=== PATIENT | female | born 1950 | race Caucasian/White ===

== ENCOUNTER 2025-03-22 13:56 | Inpatient (IN) | payer OTHER ==
[~2025-03-22] VITALS: Ht 167.6 cm; Wt 72.6 kg
[2025-03-22] VITALS (12 sets, daily range): BP systolic 73–133; BP diastolic 46–113; PULSE 110–123; RESP 11–23; TEMP 35.584–35.6; O2SAT 92–99
[2025-03-22] MEDS ORDERED: ACYCLOVIR INJ 500 MG in DEXT 5% WATER 100 ML IV ONE (14:30)
[2025-03-22] MEDS: SODIUM CHLORIDE 0.9% (SEPSIS BOLUS) IV ONE (14:39)
[2025-03-22] MEDS: MORPHINE SULFATE 4 MG/ML INJ (FOR IV/IM USE) IV ONE (15:00)
[2025-03-22] MEDS: PIPERACILLIN/TAZO 3.375G/50ML 50 ML IV ONE (15:03)
[2025-03-22] MEDS: ONDANSETRON HCL 4MG/2ML INJ IV ONE (15:06)
[2025-03-22 15:09] LABS: BASOPHILS % 0.0 % (0.0-2.0); EOSINOPHILS % 0.1 % (0.0-5.0); HEMATOCRIT. 23.6 % (36.0-48.0); HEMOGLOBIN. 7.3 g/dL (12.0-16.0); LYMPHOCYTES % 14.7 % (20.0-50.0); MEAN PLATELET VOLUME 6.5 fl (7.4-10.4); MONOCYTES % 12.5 % (2.0-8.0); NEUTROPHILS % 72.7 % (40.0-76.0); PLATELET 185 x1000/uL (130-400); RED BLOOD CELL COUNT 2.85 mill/uL (4.2-5.4); RED CELL DISTRIBUTION WIDTH 16.3 % (11.6-14.6)
[2025-03-22 15:20] LABS: CREATININE 1.3 mg/dL (0.6-1.0)
[2025-03-22 15:21] LABS: UREA NITROGEN BLOOD 64 mg/dL (9-23)
[2025-03-22 15:22] LABS: ASPARTATE AMINOTRANSFERASE 16 IU/L (<34); TROPONIN I HIGH SENSITIVITY 11 ng/L (3.0-34)
[2025-03-22 15:23] LABS: BILIRUBIN DIRECT 0.1 mg/dL (<=3.0); BILIRUBIN TOTAL 0.3 mg/dL (0.1-1.0); PROTEIN TOTAL 5.0 g/dL (6.0-8.3)
[2025-03-22 15:34] LABS: INR 1.1
[2025-03-22] MEDS: ACYCLOVIR INJ 600 MG in DEXT 5% WATER 100 ML IV SCH (16:13)
[2025-03-22] MEDS: NOREPINEPHRINE 8MG/250ML PMX 250 ML IV ONE (16:26)
[2025-03-22 16:43] LABS: CLARITY URINE TURBID (CLEAR); COLOR URINE YELLOW (YELLOW); GLUCOSE URINE NEGATIVE (NEGATIVE); KETONES URINE NEGATIVE (NEGATIVE); LEUKOCYTE ESTERASE URINE 3+ (NEGATIVE); NITRITE URINE NEGATIVE (NEGATIVE); OCCULT BLOOD URINE 3+ (NEGATIVE); PH URINE 5.0 (4.5-8.0); PROTEIN URINE 1+ (NEGATIVE); SPECIFIC GRAVITY URINE 1.014 (1.005-1.030); UROBILINOGEN URINE 0.2 E.U./dL (0.2-1.0)
[2025-03-22] MEDS: SODIUM BICARBONATE 8.4% 50MEQ/50ML SYR IV ONE (17:11)
[2025-03-22 17:29] LABS: BACTERIA URINE 3+; RBC URINE TNTC /hpf (0-2); SQUAMOUS EPITHELIAL CELL URINE 1+ /lpf (RARE/1+); WBC URINE TNTC /hpf (0-2)
[2025-03-22] MEDS: VANCOMYCIN 1G PREMIX 200 ML IV STA (18:08)
[2025-03-22] MEDS: DIATR MEGLU/DIATRIZOATE SOLN 30ML NG ONE (19:51)
[2025-03-22] MEDS ORDERED: ONDANSETRON HCL 4MG/2ML INJ IV PRN (20:45)
[2025-03-22] MEDS ORDERED: CLONIDINE 0.1MG TABLET PO PRN (20:45)
[2025-03-22] MEDS ORDERED: MAGNESIUM/ALUMINUM HYDROXIDE/SIMETHICONE 30ML UDC PO PRN (20:45)
[2025-03-22] MEDS ORDERED: IPRATROPIUM/ALBUTEROL 0.5-3(2.5)MG/3ML NEB HHN PRN (20:45)
[2025-03-22] MEDS ORDERED: DEXTROSE 50% WATER 50ML SYRINGE IV PRN (20:45)
[2025-03-22] MEDS ORDERED: DOCUSATE SODIUM 100MG CAPSULE PO PRN (20:45)
[2025-03-22] MEDS ORDERED: GUAIFENESIN 200MG/10ML SUGAR FREE UDC PO PRN (20:45)
[2025-03-22] MEDS: SODIUM ZIRCONIUM CYCLOSILICATE 10GM/PACKET PO NR (22:00)
[2025-03-22] MEDS ORDERED: VASOPRESSIN 20 UNIT in SODIUM CHLORIDE 0.9% 99 ML IV PRN (22:00)
[2025-03-22] MEDS: SODIUM CHLORIDE 0.9% 1,000 ML IV SCH (22:24)
[2025-03-22] MEDS: PANTOPRAZOLE SODIUM 40 MG/VIAL IV SCH (22:24)
[2025-03-22] MEDS: PIPERACILLIN/TAZO 3.375G/50ML 50 ML IV SCH (22:25)
[2025-03-22] MEDS: NOREPINEPHRINE 8MG/250ML PMX 250 ML IV PRN (23:46)
[2025-03-22] MEDS: SODIUM BICARBONATE 8.4% 50MEQ/50ML SYR IV NR (23:47)
[2025-03-22] MEDS: INSULIN REGULAR (HUMULIN R) 1000UNITS/10ML VIAL IV NR (23:47)
[2025-03-22] MEDS: PHENYLEPHRINE 50MG/250ML PMX 250 ML IV PRN (23:48)
[2025-03-23] VITALS (118 sets, daily range): BP systolic 61–192; BP diastolic 28–160; PULSE 90–128; RESP 8–29; TEMP 35.8–37.1; O2SAT 96–100
[2025-03-23] MEDS: BLOOD SUGAR DIAGNOSTIC STRIP TEST SCH (00:11)
[2025-03-23] MEDS: CALCIUM GLUCONATE 1GM PREMIX 50 ML IV NR (00:24)
[2025-03-23] MEDS: INSULIN LISPRO 100 UNITS/ML SUBCUT SCH (00:42)
[2025-03-23 05:21] LABS: HEMATOCRIT. 26.9 % (36.0-48.0); HEMOGLOBIN. 8.1 g/dL (12.0-16.0); MEAN PLATELET VOLUME 6.8 fl (7.4-10.4); RED BLOOD CELL COUNT 3.16 mill/uL (4.2-5.4); RED CELL DISTRIBUTION WIDTH 16.9 % (11.6-14.6)
[2025-03-23 05:29] LABS: CREATININE 1.4 mg/dL (0.6-1.0)
[2025-03-23 05:30] LABS: TRIGLYCERIDE 111.0 mg/dL (0-150); UREA NITROGEN BLOOD 60.0 mg/dL (9-23)
[2025-03-23 05:31] LABS: LDL CHOLESTEROL 18.0 mg/dL (5-100)
[2025-03-23 05:34] LABS: T4 FREE 1.13 ng/dL (0.89-1.76)
[2025-03-23 05:48] LABS: FOLIC ACID (FOLATE) SERUM 10.39 ng/mL (>5.38); VITAMIN B12 SERUM 592 pg/mL (211-911)
[2025-03-23] MEDS ORDERED: VALACYCLOVIR HCL 500MG TABLET PO SCH (09:00)
[2025-03-23 09:07] LABS: PHOSPHORUS 3.5 mg/dL (2.5-4.9)
[2025-03-23] MEDS: VANCOMYCIN 750MG/150ML (BAXTER) IV SCH (09:33)
[2025-03-23] MEDS: SODIUM CHLORIDE 0.9% 500 ML IV ONE (10:22)
[2025-03-23 13:04] LABS: PLATELET 177 x1000/uL (130-400)
[2025-03-23 13:10] LABS: BAND% 17.0 % (1.0-6.0); LYMPHOCYTES % MANUAL 5.0 % (20.0-60.0); MONOCYTES % MANUAL 6.0 % (2.0-8.0); NEUTROPHILS % MANUAL 72.0 % (45.0-75.0)
[2025-03-23 13:11] LABS: PLATELET ESTIMATE NORMAL
[2025-03-23] MEDS: LACTATED RINGERS 1,000 ML IV SCH (17:37)
[2025-03-23] MEDS: MAGNESIUM 2 G PREMIX 50 ML IV SCH (17:37)
[2025-03-23] MEDS: ACYCLOVIR INJ 600 MG in DEXT 5% WATER 100 ML IV SCH (18:35)
[2025-03-23] MEDS: HYDROCORTISONE SOD SUCCINATE 100 MG/2 ML VIAL IV SCH (18:36)
[2025-03-24] VITALS (102 sets, daily range): BP systolic 80–224; BP diastolic 32–206; PULSE 96–122; RESP 5–34; TEMP 36.3918–37.1; O2SAT 88–100
[2025-03-24] MEDS: MORPHINE SULFATE 2 MG/ML INJ (NOT FOR IM USE) IV PRN (02:36)
[2025-03-24] MEDS: PHENYLEPHRINE 50 MG in DEXTROSE 5% WATER 250 ML IV PRN (04:36)
[2025-03-24] MEDS ORDERED: LIDOCAINE HCL 1% 10 MG/ML 10ML VIAL ONE (07:41)
[2025-03-24 07:46] LABS: HEMATOCRIT. 29.9 % (36.0-48.0); HEMOGLOBIN. 9.6 g/dL (12.0-16.0); MEAN PLATELET VOLUME 6.8 fl (7.4-10.4); PLATELET 121 x1000/uL (130-400); RED BLOOD CELL COUNT 3.64 mill/uL (4.2-5.4); RED CELL DISTRIBUTION WIDTH 16.4 % (11.6-14.6)
[2025-03-24 08:22] LABS: CREATININE 1.7 mg/dL (0.6-1.0); UREA NITROGEN BLOOD 80 mg/dL (9-23)
[2025-03-24 08:24] LABS: PHOSPHORUS 5.0 mg/dL (2.5-4.9)
[2025-03-24] MEDS: CALCIUM GLUCONATE 1GM PREMIX 50 ML IV SCH (10:16)
[2025-03-24 12:53] LABS: TROPONIN I HIGH SENSITIVITY 829 ng/L (3.0-34)
[2025-03-24] MEDS ORDERED: NALOXONE HCL 0.4MG/ML VIAL IV PRN (15:15)
[2025-03-24] MEDS: MEROPENEM 1G/100ML 100 ML IV SCH (16:04)
[2025-03-24 17:48] LABS: BAND% 2.0 % (1.0-6.0); LYMPHOCYTES % MANUAL 3.0 % (20.0-60.0); MONOCYTES % MANUAL 4.0 % (2.0-8.0); NEUTROPHILS % MANUAL 91.0 % (45.0-75.0); PLATELET ESTIMATE DECREASED
[2025-03-24] MEDS: ENOXAPARIN 30MG/0.3ML SYR SUBCUT SCH (18:27)
[2025-03-25] VITALS (102 sets, daily range): BP systolic 58–144; BP diastolic 24–113; PULSE 87–114; RESP 6–32; TEMP 36.4–36.9; O2SAT 96–100
[2025-03-25 05:49] LABS: CREATININE 1.8 mg/dL (0.6-1.0); UREA NITROGEN BLOOD 46 mg/dL (9-23)
[2025-03-25 05:50] LABS: ASPARTATE AMINOTRANSFERASE 36 IU/L (<34)
[2025-03-25 05:51] LABS: BILIRUBIN TOTAL 0.3 mg/dL (0.1-1.0); PROTEIN TOTAL 4.7 g/dL (6.0-8.3)
[2025-03-25 14:03] LABS: HEMATOCRIT. 27.5 % (36.0-48.0); HEMOGLOBIN. 8.6 g/dL (12.0-16.0); MEAN PLATELET VOLUME 6.7 fl (7.4-10.4); PLATELET 82 x1000/uL (130-400); RED BLOOD CELL COUNT 3.32 mill/uL (4.2-5.4); RED CELL DISTRIBUTION WIDTH 17.0 % (11.6-14.6)
[2025-03-25 15:49] LABS: LYMPHOCYTES % MANUAL 1.0 % (20.0-60.0); MONOCYTES % MANUAL 6.0 % (2.0-8.0); NEUTROPHILS % MANUAL 93.0 % (45.0-75.0); NUCLEATED RED BLOOD CELLS 2 /100 WBC; PLATELET ESTIMATE DECREASED
[2025-03-25 15:59] LABS: CREATININE 1.8 mg/dL (0.6-1.0); UREA NITROGEN BLOOD 60 mg/dL (9-23)
[2025-03-25 16:01] LABS: PHOSPHORUS 4.8 mg/dL (2.5-4.9)
[2025-03-25 23:05] LABS: TROPONIN I HIGH SENSITIVITY 1303 ng/L (3.0-34)
[2025-03-26] VITALS (110 sets, daily range): BP systolic 64–158; BP diastolic 28–126; PULSE 100–125; RESP 8–28; TEMP 35.6–37; O2SAT 92–100
[2025-03-26 05:44] LABS: BG BASE EXCESS -10.7 mmol/L (-2.0-3.0); BG CARBOXYHEMOGLOBIN 2.1 % (0.5-1.5); BG DEOXYHEMOGLOBIN 5.7 % (0.0-5.0); BG FRACTION INSPIRED OXYGEN 21; BG HCO3 ACT 16.5 mmol/L (21.0-28.0); BG METHEMOGLOBIN 0.3 % (0.5-1.5); BG OXYGEN SATURATION 94.2 % (94.0-98.0); BG OXYHEMOGLOBIN 91.9 % (94.0-98.0); BG PCO2 42.2 mmHg (32.0-45.0); BG PH 7.211 (7.350-7.450); BG PO2 72.2 mmHg (83.0-108.0); BG SAMPLE SITE RIGHT RADIAL; BG TOTAL HEMOGLOBIN 9.6 g/dL (12.0-16.0); BG VENT MODE ROOM AIR
[2025-03-26 05:55] LABS: HEMATOCRIT. 26.9 % (36.0-48.0); HEMOGLOBIN. 8.5 g/dL (12.0-16.0); MEAN PLATELET VOLUME 6.7 fl (7.4-10.4); RED BLOOD CELL COUNT 3.34 mill/uL (4.2-5.4); RED CELL DISTRIBUTION WIDTH 17.3 % (11.6-14.6)
[2025-03-26 06:03] LABS: CREATININE 1.7 mg/dL (0.6-1.0); UREA NITROGEN BLOOD 56 mg/dL (9-23)
[2025-03-26 06:05] LABS: PHOSPHORUS 4.1 mg/dL (2.5-4.9)
[2025-03-26 06:06] LABS: TROPONIN I HIGH SENSITIVITY 1284 ng/L (3.0-34)
[2025-03-26 06:11] LABS: PLATELET 49 x1000/uL (130-400)
[2025-03-26] MEDS: SODIUM BICARBONATE 8.4% 50MEQ/50ML SYR IV NR (06:13)
[2025-03-26] MEDS: ACYCLOVIR INJ 600 MG in DEXT 5% WATER 100 ML IV SCH ×2 (09:21→21:37)
[2025-03-26 09:59] LABS: BG BASE EXCESS -6.0 mmol/L (-2.0-3.0); BG CARBOXYHEMOGLOBIN 1.5 % (0.5-1.5); BG DEOXYHEMOGLOBIN 0.1 % (0.0-5.0); BG FRACTION INSPIRED OXYGEN 100; BG HCO3 ACT 15.7 mmol/L (21.0-28.0); BG METHEMOGLOBIN 0.3 % (0.5-1.5); BG OXYGEN SATURATION 99.9 % (94.0-98.0); BG OXYHEMOGLOBIN 98.1 % (94.0-98.0); BG PCO2 20.6 mmHg (32.0-45.0); BG PEEP (cmH2O) 5.0 cmH2O; BG PH 7.500 (7.350-7.450); BG PO2 413.5 mmHg (83.0-108.0); BG SAMPLE SITE RIGHT RADIAL; BG TIDAL VOLUME(mL) 500.0 mL; BG TOTAL HEMOGLOBIN 9.7 g/dL (12.0-16.0); BG TOTAL RESPIRATORY RATE 18 b/min; BG VENT MODE VENT - AC; BG VENT RATE 18.0 set
[2025-03-26] MEDS: IPRATROPIUM/ALBUTEROL 0.5-3(2.5)MG/3ML NEB HHN SCH (15:54)
[2025-03-26 17:36] LABS: LYMPHOCYTES % MANUAL 6.0 % (20.0-60.0); MONOCYTES % MANUAL 5.0 % (2.0-8.0); NEUTROPHILS % MANUAL 89.0 % (45.0-75.0); PLATELET ESTIMATE MARKEDLY DECREASED
[2025-03-27] VITALS (111 sets, daily range): BP systolic 65–168; BP diastolic 36–142; PULSE 95–132; RESP 13–25; TEMP 35.9–37.4; O2SAT 95–100
[2025-03-27] MEDS: INSULIN LISPRO 100 UNITS/ML SUBCUT SCH
[2025-03-27] MEDS: PROPOFOL 10MG/ML 100ML 100 ML IV PRN (00:25)
[2025-03-27 06:05] LABS: BASOPHILS % 0.1 % (0.0-2.0); EOSINOPHILS % 0.6 % (0.0-5.0); HEMATOCRIT. 27.4 % (36.0-48.0); HEMOGLOBIN. 9.2 g/dL (12.0-16.0); LYMPHOCYTES % 7.4 % (20.0-50.0); MEAN PLATELET VOLUME 6.8 fl (7.4-10.4); MONOCYTES % 7.5 % (2.0-8.0); NEUTROPHILS % 84.4 % (40.0-76.0); RED BLOOD CELL COUNT 3.51 mill/uL (4.2-5.4); RED CELL DISTRIBUTION WIDTH 16.5 % (11.6-14.6)
[2025-03-27 06:45] LABS: PLATELET 35 x1000/uL (130-400)
[2025-03-27 06:54] LABS: CREATININE 1.5 mg/dL (0.6-1.0); TRIGLYCERIDE 197.0 mg/dL (0-150)
[2025-03-27 06:55] LABS: UREA NITROGEN BLOOD 45.0 mg/dL (9-23)
[2025-03-27] MEDS: KCL 20MEQ/100ML PREMIX 100 ML IV SCH (09:03)
[2025-03-27] MEDS: DEXT 5%/LACTATED RINGERS 1,000 ML IV SCH (09:03)
[2025-03-27 09:28] LABS: BG BASE EXCESS -3.9 mmol/L (-2.0-3.0); BG CARBOXYHEMOGLOBIN 1.3 % (0.5-1.5); BG DEOXYHEMOGLOBIN 0.6 % (0.0-5.0); BG FRACTION INSPIRED OXYGEN 40; BG HCO3 ACT 18.5 mmol/L (21.0-28.0); BG METHEMOGLOBIN 0.2 % (0.5-1.5); BG OXYGEN SATURATION 99.4 % (94.0-98.0); BG OXYHEMOGLOBIN 97.9 % (94.0-98.0); BG PCO2 25.5 mmHg (32.0-45.0); BG PEEP (cmH2O) 5.0 cmH2O; BG PH 7.479 (7.350-7.450); BG PO2 155.4 mmHg (83.0-108.0); BG SAMPLE SITE RIGHT RADIAL; BG TIDAL VOLUME(mL) 500.0 mL; BG TOTAL HEMOGLOBIN 10.0 g/dL (12.0-16.0); BG VENT MODE VENT - PRVC; BG VENT RATE 14.0 set
[2025-03-27] MEDS: PHENYLEPHRINE 100 MG in DEXT 5% WATER 240 ML IV PRN (16:04)
[2025-03-27] MEDS: ACYCLOVIR INJ 500 MG in DEXT 5% WATER 100 ML IV SCH (21:15)
[2025-03-27] MEDS ORDERED: PHENYLEPHRINE 50MG/250ML PMX 250 ML IV PRN (22:15)
[2025-03-27] MEDS: PHENYLEPHRINE 50 MG in DEXTROSE 5% WATER 250 ML IV PRN (22:30)
[2025-03-28] VITALS (109 sets, daily range): BP systolic 48–153; BP diastolic 23–108; PULSE 93–126; RESP 13–28; TEMP 36.9–37.2; O2SAT 94–100
[2025-03-28] MEDS: PROPOFOL 10MG/ML 100ML 100 ML IV PRN (03:14)
[2025-03-28 05:38] LABS: CREATININE 1.3 mg/dL (0.6-1.0); TRIGLYCERIDE 128.0 mg/dL (0-150); UREA NITROGEN BLOOD 24.0 mg/dL (9-23)
[2025-03-28] MEDS ORDERED: POTASSIUM CHLORIDE 20MEQ TABLET SR PO NR (06:45)
[2025-03-28 09:40] LABS: HEMATOCRIT. 30.3 % (36.0-48.0); HEMOGLOBIN. 9.9 g/dL (12.0-16.0); MEAN PLATELET VOLUME 7.7 fl (7.4-10.4); RED BLOOD CELL COUNT 3.84 mill/uL (4.2-5.4); RED CELL DISTRIBUTION WIDTH 16.5 % (11.6-14.6)
[2025-03-28 09:58] LABS: PLATELET 42 x1000/uL (130-400)
[2025-03-28 10:02] LABS: BG BASE EXCESS -3.2 mmol/L (-2.0-3.0); BG CARBOXYHEMOGLOBIN 1.4 % (0.5-1.5); BG CPAP (cmH2O) 5.0 cm(H2O); BG DEOXYHEMOGLOBIN 0.6 % (0.0-5.0); BG FRACTION INSPIRED OXYGEN 40; BG HCO3 ACT 19.3 mmol/L (21.0-28.0); BG METHEMOGLOBIN 0.2 % (0.5-1.5); BG OXYGEN SATURATION 99.4 % (94.0-98.0); BG OXYHEMOGLOBIN 97.8 % (94.0-98.0); BG PCO2 26.2 mmHg (32.0-45.0); BG PEEP (cmH2O) 5.0 cmH2O; BG PH 7.485 (7.350-7.450); BG PO2 151.1 mmHg (83.0-108.0); BG SAMPLE SITE RIGHT RADIAL; BG TIDAL VOLUME(mL) 500.0 mL; BG TOTAL HEMOGLOBIN 9.8 g/dL (12.0-16.0); BG VENT MODE VENT - PRVC; BG VENT RATE 14.0 set
[2025-03-28] MEDS: KCL 20MEQ/100ML PREMIX 100 ML IV NR (10:31)
[2025-03-28 10:34] LABS: LYMPHOCYTES % MANUAL 7.0 % (20.0-60.0); MONOCYTES % MANUAL 7.0 % (2.0-8.0); NEUTROPHILS % MANUAL 86.0 % (45.0-75.0); PLATELET ESTIMATE MARKEDLY DECREASED
[2025-03-28] MEDS ORDERED: CALCIUM GLUCONATE 1GM PREMIX 50 ML IV ONE (11:45)
[2025-03-29] VITALS (107 sets, daily range): BP systolic 68–168; BP diastolic 18–135; PULSE 90–142; RESP 13–27; TEMP 36.1–37.3; O2SAT 93–100
[2025-03-29] MEDS ORDERED: FENTANYL CITRATE/PF 50MCG/ML 2ML VIAL IV NR (03:30)
[2025-03-29 06:57] LABS: HEMATOCRIT. 29.2 % (36.0-48.0); HEMOGLOBIN. 9.5 g/dL (12.0-16.0); MEAN PLATELET VOLUME 8.2 fl (7.4-10.4); RED BLOOD CELL COUNT 3.61 mill/uL (4.2-5.4); RED CELL DISTRIBUTION WIDTH 16.3 % (11.6-14.6)
[2025-03-29 07:16] LABS: CREATININE 1.2 mg/dL (0.6-1.0); UREA NITROGEN BLOOD 27.0 mg/dL (9-23)
[2025-03-29 07:27] LABS: PLATELET 31 x1000/uL (130-400)
[2025-03-29] MEDS: KCL 20MEQ/100ML PREMIX 100 ML IV NR (08:38)
[2025-03-29 09:50] LABS: BG BASE EXCESS -4.6 mmol/L (-2.0-3.0); BG CARBOXYHEMOGLOBIN 1.4 % (0.5-1.5); BG DEOXYHEMOGLOBIN 0.6 % (0.0-5.0); BG FRACTION INSPIRED OXYGEN 40; BG HCO3 ACT 17.9 mmol/L (21.0-28.0); BG METHEMOGLOBIN 0.3 % (0.5-1.5); BG OXYGEN SATURATION 99.4 % (94.0-98.0); BG OXYHEMOGLOBIN 97.7 % (94.0-98.0); BG PCO2 24.8 mmHg (32.0-45.0); BG PEEP (cmH2O) 5.0 cmH2O; BG PH 7.476 (7.350-7.450); BG PO2 182.8 mmHg (83.0-108.0); BG SAMPLE SITE LEFT FEMORAL; BG TIDAL VOLUME(mL) 450.0 mL; BG TOTAL HEMOGLOBIN 9.5 g/dL (12.0-16.0); BG VENT MODE AC/PRVC; BG VENT RATE 14.0 set
[2025-03-29] MEDS ORDERED: PROPOFOL 10MG/ML 100ML 100 ML IV PRN (12:15)
[2025-03-29] MEDS: AMIODARONE HCL 900 MG in DEXT 5% WATER 482 ML IV SCH (13:25)
[2025-03-29] MEDS: PROPOFOL 10MG/ML 100ML 100 ML IV PRN (16:05)
[2025-03-29] MEDS: PHENYLEPHRINE 50 MG in DEXT 5% WATER 245 ML IV STA (18:30)
[2025-03-29 20:40] LABS: LYMPHOCYTES % MANUAL 11.0 % (20.0-60.0); MONOCYTES % MANUAL 3.0 % (2.0-8.0); NEUTROPHILS % MANUAL 86.0 % (45.0-75.0); PLATELET ESTIMATE MARKEDLY DECREASED
[2025-03-30] VITALS (105 sets, daily range): BP systolic 76–141; BP diastolic 26–125; PULSE 79–116; RESP 13–25; TEMP 35.8–36.4; O2SAT 99–100
[2025-03-30 05:58] LABS: HEMATOCRIT. 28.3 % (36.0-48.0); HEMOGLOBIN. 9.1 g/dL (12.0-16.0); MEAN PLATELET VOLUME 8.0 fl (7.4-10.4); RED BLOOD CELL COUNT 3.53 mill/uL (4.2-5.4); RED CELL DISTRIBUTION WIDTH 15.9 % (11.6-14.6)
[2025-03-30 06:01] LABS: CREATININE 1.1 mg/dL (0.6-1.0); TRIGLYCERIDE 168.0 mg/dL (0-150); UREA NITROGEN BLOOD 28.0 mg/dL (9-23)
[2025-03-30 07:11] LABS: PLATELET 40 x1000/uL (130-400)
[2025-03-30] MEDS: PHENYLEPHRINE 100 MG in DEXT 5% WATER 240 ML IV PRN (08:18)
[2025-03-30] MEDS: ALBUMIN HUMAN 25GM/100ML (25%) IV SCH (08:41)
[2025-03-30] MEDS ORDERED: LIDOCAINE HCL 1% 10 MG/ML 10ML VIAL ONE (09:29)
[2025-03-30] MEDS: CALCIUM GLUCONATE 1,000 MG in SODIUM CHLORIDE 0.9% 50 ML IV SCH (11:11)
[2025-03-30 11:42] LABS: PHOSPHORUS 2.2 mg/dL (2.5-4.9)
[2025-03-30] MEDS ORDERED: DEXT 5%/LACTATED RINGERS 1,000 ML IV SCH (12:00)
[2025-03-30] MEDS: DEXT 5%/LACTATED RINGERS 1,000 ML IV SCH (12:53)
[2025-03-30] MEDS ORDERED: MORPHINE SULFATE 2 MG/ML INJ (NOT FOR IM USE) IV PRN (17:36)
[2025-03-30] MEDS ORDERED: PROPOFOL 10MG/ML 100ML 100 ML IV PRN (17:45)
[2025-03-30] MEDS: CALCIUM GLUCONATE 1,000 MG in DEXT 5% WATER 100 ML IV NR (18:25)
[2025-03-30] MEDS: MAGNESIUM 4 G PREMIX 100 ML IV NR (18:26)
[2025-03-30] MEDS: PROPOFOL 10MG/ML 100ML 100 ML IV PRN (19:00)
[2025-03-30] MEDS: TOTAL PARENTERAL NUTRITION 2,000 ML IV SCH (21:36)
[2025-03-31] VITALS (99 sets, daily range): BP systolic 78–149; BP diastolic 46–116; PULSE 76–120; RESP 14–38; TEMP 36.3–37.2; O2SAT 99–100
[2025-03-31 05:41] LABS: HEMATOCRIT. 23.2 % (36.0-48.0); HEMOGLOBIN. 7.6 g/dL (12.0-16.0); MEAN PLATELET VOLUME 7.9 fl (7.4-10.4); RED BLOOD CELL COUNT 2.87 mill/uL (4.2-5.4); RED CELL DISTRIBUTION WIDTH 15.9 % (11.6-14.6)
[2025-03-31 05:51] LABS: CREATININE 1.2 mg/dL (0.6-1.0); PROTEIN TOTAL 3.6 g/dL (6.0-8.3)
[2025-03-31 05:52] LABS: LDL CHOLESTEROL 32 mg/dL (5-100); TRIGLYCERIDE 115 mg/dL (0-150); UREA NITROGEN BLOOD 21 mg/dL (9-23)
[2025-03-31 05:53] LABS: ASPARTATE AMINOTRANSFERASE 18 IU/L (<34)
[2025-03-31 05:54] LABS: BILIRUBIN TOTAL 0.6 mg/dL (0.1-1.0); PHOSPHORUS 1.6 mg/dL (2.5-4.9)
[2025-03-31 06:51] LABS: PLATELET 37 x1000/uL (130-400)
[2025-03-31] MEDS ORDERED: CALCIUM GLUCONATE 1GM PREMIX 50 ML IV ONE (08:30)
[2025-03-31 09:18] LABS: BG BASE EXCESS -6.4 mmol/L (-2.0-3.0); BG CARBOXYHEMOGLOBIN 2.1 % (0.5-1.5); BG DEOXYHEMOGLOBIN 1.4 % (0.0-5.0); BG FRACTION INSPIRED OXYGEN 30; BG HCO3 ACT 17.9 mmol/L (21.0-28.0); BG METHEMOGLOBIN 0.3 % (0.5-1.5); BG OXYGEN SATURATION 98.6 % (94.0-98.0); BG OXYHEMOGLOBIN 96.2 % (94.0-98.0); BG PCO2 30.6 mmHg (32.0-45.0); BG PEEP (cmH2O) 5.0 cmH2O; BG PH 7.386 (7.350-7.450); BG PO2 127.8 mmHg (83.0-108.0); BG SAMPLE SITE RIGHT RADIAL; BG TIDAL VOLUME(mL) 450.0 mL; BG TOTAL HEMOGLOBIN 7.5 g/dL (12.0-16.0); BG VENT MODE VENT - PRVC; BG VENT RATE 14.0 set
[2025-03-31] MEDS ORDERED: CALCIUM GLUCONATE 1,000 MG in SODIUM CHLORIDE 0.9% 50 ML IV SCH (10:00)
[2025-03-31 11:11] LABS: BAND% 3.0 % (1.0-6.0); EOSINOPHILS % MANUAL 1.0 % (0.0-5.0); LYMPHOCYTES % MANUAL 11.0 % (20.0-60.0); MONOCYTES % MANUAL 1.0 % (2.0-8.0); NEUTROPHILS % MANUAL 84.0 % (45.0-75.0); PLATELET ESTIMATE MARKEDLY DECREASED
[2025-03-31] MEDS: POTASSIUM PHOSPHATE 30 MMOL in DEXT 5% WATER 490 ML IV ONE (11:30)
[2025-03-31] MEDS: BLOOD SUGAR DIAGNOSTIC STRIP TEST SCH (11:31)
[2025-03-31] MEDS: INSULIN LISPRO 100 UNITS/ML SUBCUT SCH (11:44)
[2025-03-31 16:21] LABS: LYMPHOCYTES % MANUAL 10.0 % (20.0-60.0); MONOCYTES % MANUAL 6.0 % (2.0-8.0); NEUTROPHILS % MANUAL 84.0 % (45.0-75.0)
[2025-03-31 16:22] LABS: PLATELET ESTIMATE MARKEDLY DECREASED
[2025-03-31] MEDS ORDERED: NALOXONE HCL 0.4MG/ML VIAL IV PRN (18:15)
[2025-03-31] MEDS: TOTAL PARENTERAL NUTRITION 2,000 ML IV SCH (20:57)
[2025-03-31] MEDS: INSULIN GLARGINE 100 UNITS/ML SUBCUT SCH (21:21)
[2025-04-01] VITALS (98 sets, daily range): BP systolic 78–128; BP diastolic 46–78; PULSE 87–123; RESP 15–30; TEMP 36.6–37.2; O2SAT 98–100
[2025-04-01] MEDS ORDERED: PROPOFOL 10MG/ML 100ML 100 ML IV PRN (03:30)
[2025-04-01 05:36] LABS: CREATININE 1.1 mg/dL (0.6-1.0); UREA NITROGEN BLOOD 23.0 mg/dL (9-23)
[2025-04-01 05:40] LABS: PHOSPHORUS 1.2 mg/dL (2.5-4.9)
[2025-04-01] MEDS: AMIODARONE HCL 900 MG in DEXT 5% WATER 482 ML IV SCH (11:29)
[2025-04-01] MEDS: POTASSIUM PHOSPHATE 20MMOL in DEXT 5% WATER 250ML IV ONE (13:42)
[2025-04-01] MEDS: INSULIN LISPRO 100 UNITS/ML SUBCUT SCH (18:56)
[2025-04-02] VITALS (112 sets, daily range): BP systolic 82–132; BP diastolic 33–68; PULSE 83–106; RESP 12–35; TEMP 36.6–37.1; O2SAT 77–100
[2025-04-02 05:18] LABS: BG BASE EXCESS 1.0 mmol/L (-2.0-3.0); BG CARBOXYHEMOGLOBIN 1.8 % (0.5-1.5); BG DEOXYHEMOGLOBIN 0.0 % (0.0-5.0); BG FRACTION INSPIRED OXYGEN 100; BG HCO3 ACT 24.5 mmol/L (21.0-28.0); BG METHEMOGLOBIN 0.1 % (0.5-1.5); BG OXYGEN SATURATION 100.0 % (94.0-98.0); BG OXYHEMOGLOBIN 98.1 % (94.0-98.0); BG PCO2 33.9 mmHg (32.0-45.0); BG PEEP (cmH2O) 5.0 cmH2O; BG PH 7.477 (7.350-7.450); BG PO2 440.1 mmHg (83.0-108.0); BG SAMPLE SITE LEFT RADIAL; BG TIDAL VOLUME(mL) 450.0 mL; BG TOTAL HEMOGLOBIN 7.1 g/dL (12.0-16.0); BG VENT MODE VENT - AC; BG VENT RATE 14.0 set
[2025-04-02 06:16] LABS: MEAN PLATELET VOLUME 7.9 fl (7.4-10.4); RED BLOOD CELL COUNT 2.58 mill/uL (4.2-5.4); RED CELL DISTRIBUTION WIDTH 16.0 % (11.6-14.6)
[2025-04-02 06:29] LABS: CREATININE 1.1 mg/dL (0.6-1.0)
[2025-04-02 06:30] LABS: PROTEIN TOTAL 3.4 g/dL (6.0-8.3); UREA NITROGEN BLOOD 30 mg/dL (9-23)
[2025-04-02 06:31] LABS: ASPARTATE AMINOTRANSFERASE 26 IU/L (<34); BILIRUBIN DIRECT 0.2 mg/dL (<=3.0)
[2025-04-02 06:32] LABS: BILIRUBIN TOTAL 0.4 mg/dL (0.1-1.0)
[2025-04-02 06:33] LABS: PHOSPHORUS 0.6 mg/dL (2.5-4.9)
[2025-04-02 06:39] LABS: HEMATOCRIT. 20.5 % (36.0-48.0); HEMOGLOBIN. 6.9 g/dL (12.0-16.0); PLATELET 34 x1000/uL (130-400)
[2025-04-02] MEDS: SODIUM PHOSPHATE 30 MMOL in DEXT 5% WATER 490 ML IV NR (09:17)
[2025-04-02 12:45] LABS: BG BASE EXCESS 1.7 mmol/L (-2.0-3.0); BG CARBOXYHEMOGLOBIN 2.2 % (0.5-1.5); BG DEOXYHEMOGLOBIN 2.1 % (0.0-5.0); BG FRACTION INSPIRED OXYGEN 35; BG HCO3 ACT 27.2 mmol/L (21.0-28.0); BG METHEMOGLOBIN 0.3 % (0.5-1.5); BG OXYGEN SATURATION 97.8 % (94.0-98.0); BG OXYHEMOGLOBIN 95.4 % (94.0-98.0); BG PCO2 48.1 mmHg (32.0-45.0); BG PEEP (cmH2O) 8.0 cmH2O; BG PH 7.371 (7.350-7.450); BG PO2 104.8 mmHg (83.0-108.0); BG SAMPLE SITE RIGHT RADIAL; BG TOTAL HEMOGLOBIN 7.0 g/dL (12.0-16.0); BG VENT MODE VENT - CPAP
[2025-04-02 13:57] LABS: BAND% 3.0 % (1.0-6.0); EOSINOPHILS % MANUAL 3.0 % (0.0-5.0); LYMPHOCYTES % MANUAL 5.0 % (20.0-60.0); MONOCYTES % MANUAL 2.0 % (2.0-8.0); NEUTROPHILS % MANUAL 87.0 % (45.0-75.0); PLATELET ESTIMATE MARKEDLY DECREASED
[2025-04-02 18:13] LABS: HEMATOCRIT. 25.1 % (36.0-48.0); HEMOGLOBIN. 8.1 g/dL (12.0-16.0); MEAN PLATELET VOLUME 7.3 fl (7.4-10.4); RED BLOOD CELL COUNT 2.99 mill/uL (4.2-5.4); RED CELL DISTRIBUTION WIDTH 17.9 % (11.6-14.6)
[2025-04-02 18:20] LABS: PLATELET 37 x1000/uL (130-400)
[2025-04-02 18:36] LABS: LYMPHOCYTES % MANUAL 11.0 % (20.0-60.0); MONOCYTES % MANUAL 9.0 % (2.0-8.0); NEUTROPHILS % MANUAL 80.0 % (45.0-75.0); PLATELET ESTIMATE MARKEDLY DECREASED
[2025-04-02] MEDS: TOTAL PARENTERAL NUTRITION 2,000 ML IV SCH (20:38)
[2025-04-03] VITALS (107 sets, daily range): BP systolic 57–186; BP diastolic 37–110; PULSE 74–139; RESP 16–33; TEMP 36.4–37.1; O2SAT 81–100
[2025-04-03] MEDS: NOREPINEPHRINE 32 MG in DEXT 5% WATER 218 ML IV PRN (02:19)
[2025-04-03] MEDS: VASOPRESSIN 20 UNIT in SODIUM CHLORIDE 0.9% 99 ML IV PRN (04:25)
[2025-04-03 05:59] LABS: HEMATOCRIT. 27.1 % (36.0-48.0); HEMOGLOBIN. 8.6 g/dL (12.0-16.0); MEAN PLATELET VOLUME 7.6 fl (7.4-10.4); RED BLOOD CELL COUNT 3.15 mill/uL (4.2-5.4); RED CELL DISTRIBUTION WIDTH 18.1 % (11.6-14.6)
[2025-04-03 06:19] LABS: CREATININE 1.3 mg/dL (0.6-1.0); UREA NITROGEN BLOOD 41 mg/dL (9-23)
[2025-04-03 06:21] LABS: PHOSPHORUS 3.7 mg/dL (2.5-4.9)
[2025-04-03 10:04] LABS: BAND% 5.0 % (1.0-6.0); LYMPHOCYTES % MANUAL 7.0 % (20.0-60.0); MONOCYTES % MANUAL 10.0 % (2.0-8.0); NEUTROPHILS % MANUAL 78.0 % (45.0-75.0); PLATELET ESTIMATE MARKEDLY DECREASED
[2025-04-03 10:05] LABS: PLATELET 50 x1000/uL (130-400)
[2025-04-03] MEDS: SODIUM ZIRCONIUM CYCLOSILICATE 10GM/PACKET PO NR (10:21)
[2025-04-03] MEDS: ACETAMINOPHEN 325MG TABLET PO PRN (10:22)
[2025-04-03] MEDS: TOTAL PARENTERAL NUTRITION 2,000 ML IV SCH (21:03)
[2025-04-03] MEDS: FAT EMULSIONS 500 ML IV SCH (23:50)
[2025-04-04] VITALS (94 sets, daily range): BP systolic 88–183; BP diastolic 50–110; PULSE 87–137; RESP 18–40; TEMP 36.7–37.7; O2SAT 93–99
[2025-04-04 05:49] LABS: HEMATOCRIT. 26.6 % (36.0-48.0); HEMOGLOBIN. 8.8 g/dL (12.0-16.0); MEAN PLATELET VOLUME 7.6 fl (7.4-10.4); PLATELET 55 x1000/uL (130-400); RED BLOOD CELL COUNT 3.18 mill/uL (4.2-5.4); RED CELL DISTRIBUTION WIDTH 18.0 % (11.6-14.6)
[2025-04-04 06:36] LABS: CREATININE 1.2 mg/dL (0.6-1.0); UREA NITROGEN BLOOD 43 mg/dL (9-23)
[2025-04-04 06:38] LABS: PHOSPHORUS 3.2 mg/dL (2.5-4.9)
[2025-04-04] MEDS: AMIODARONE 150MG/100ML D5W 100 ML IV NR (09:28)
[2025-04-04] MEDS: AMIODARONE HCL 900 MG in DEXT 5% WATER 482 ML IV SCH (10:28)
[2025-04-04] MEDS: ALBUMIN HUMAN 12.5GM/50ML (25%) IV SCH (11:47)
[2025-04-04 14:09] LABS: BAND% 6.0 % (1.0-6.0); LYMPHOCYTES % MANUAL 9.0 % (20.0-60.0); MONOCYTES % MANUAL 5.0 % (2.0-8.0); NEUTROPHILS % MANUAL 80.0 % (45.0-75.0); PLATELET ESTIMATE MARKEDLY DECREASED
[2025-04-05] VITALS (107 sets, daily range): BP systolic 52–132; BP diastolic 43–87; PULSE 91–119; RESP 17–34; TEMP 36.6–37.4; O2SAT 93–100
[2025-04-05 09:10] LABS: BG BASE EXCESS 2.1 mmol/L (-2.0-3.0); BG CARBOXYHEMOGLOBIN 2.0 % (0.5-1.5); BG DEOXYHEMOGLOBIN 7.7 % (0.0-5.0); BG FRACTION INSPIRED OXYGEN 50; BG HCO3 ACT 25.1 mmol/L (21.0-28.0); BG METHEMOGLOBIN 0.3 % (0.5-1.5); BG OXYGEN SATURATION 92.1 % (94.0-98.0); BG OXYHEMOGLOBIN 90.0 % (94.0-98.0); BG PCO2 32.9 mmHg (32.0-45.0); BG PEEP (cmH2O) 5.0 cmH2O; BG PH 7.500 (7.350-7.450); BG PO2 57.0 mmHg (83.0-108.0); BG SAMPLE SITE LEFT RADIAL; BG TIDAL VOLUME(mL) 450.0 mL; BG TOTAL HEMOGLOBIN 9.3 g/dL (12.0-16.0); BG TOTAL RESPIRATORY RATE 28 b/min; BG VENT MODE VENT-PRVC; BG VENT RATE 14.0 set
[2025-04-05] MEDS: FUROSEMIDE 20MG/2ML VIAL IVP SCH ×2 (12:18→14:11)
[2025-04-05 18:31] LABS: BASOPHILS % 0.7 % (0.0-2.0); EOSINOPHILS % 3.2 % (0.0-5.0); HEMATOCRIT. 24.5 % (36.0-48.0); HEMOGLOBIN. 8.0 g/dL (12.0-16.0); LYMPHOCYTES % 10.0 % (20.0-50.0); MEAN PLATELET VOLUME 9.2 fl (7.4-10.4); MONOCYTES % 11.2 % (2.0-8.0); NEUTROPHILS % 74.9 % (40.0-76.0); PLATELET 59 x1000/uL (130-400); RED BLOOD CELL COUNT 2.92 mill/uL (4.2-5.4); RED CELL DISTRIBUTION WIDTH 18.9 % (11.6-14.6)
[2025-04-05 19:11] LABS: CREATININE 1.4 mg/dL (0.6-1.0); UREA NITROGEN BLOOD 36.0 mg/dL (9-23)
[2025-04-06] VITALS (132 sets, daily range): BP systolic 30–206; BP diastolic 11–111; PULSE 91–127; RESP 1–39; TEMP 36.7–38; O2SAT 88–100
[2025-04-06] MEDS: DEXTROSE 50% WATER 50ML SYRINGE IV PRN (05:32)
[2025-04-06 07:23] LABS: HEMATOCRIT. 25.5 % (36.0-48.0); HEMOGLOBIN. 8.3 g/dL (12.0-16.0); MEAN PLATELET VOLUME 8.7 fl (7.4-10.4); RED BLOOD CELL COUNT 3.07 mill/uL (4.2-5.4); RED CELL DISTRIBUTION WIDTH 18.7 % (11.6-14.6)
[2025-04-06 07:37] LABS: PLATELET 50 x1000/uL (130-400)
[2025-04-06 07:39] LABS: CREATININE 1.5 mg/dL (0.6-1.0); UREA NITROGEN BLOOD 65.0 mg/dL (9-23)
[2025-04-06] MEDS: FUROSEMIDE 40MG/4ML VIAL IVP SCH (09:01)
[2025-04-06 09:18] LABS: BG BASE EXCESS 0.4 mmol/L (-2.0-3.0); BG CARBOXYHEMOGLOBIN 1.1 % (0.5-1.5); BG DEOXYHEMOGLOBIN 3.7 % (0.0-5.0); BG FRACTION INSPIRED OXYGEN 80; BG HCO3 ACT 24.1 mmol/L (21.0-28.0); BG METHEMOGLOBIN 0.3 % (0.5-1.5); BG OXYGEN SATURATION 96.2 % (94.0-98.0); BG OXYHEMOGLOBIN 94.9 % (94.0-98.0); BG PCO2 35.2 mmHg (32.0-45.0); BG PEEP (cmH2O) 8.0 cmH2O; BG PH 7.453 (7.350-7.450); BG PO2 79.0 mmHg (83.0-108.0); BG SAMPLE SITE LEFT RADIAL; BG TIDAL VOLUME(mL) 450.0 mL; BG TOTAL HEMOGLOBIN 9.6 g/dL (12.0-16.0); BG TOTAL RESPIRATORY RATE 16 b/min; BG VENT MODE VENT-PRVC; BG VENT RATE 14.0 set
[2025-04-06] MEDS: ACETAMINOPHEN 325MG TABLET PO PRN (09:19)
[2025-04-06] MEDS ORDERED: NALOXONE HCL 0.4MG/ML VIAL IV PRN (11:00)
[2025-04-06] MEDS ORDERED: MORPHINE SULFATE 2 MG/ML INJ (NOT FOR IM USE) IV PRN (11:00)
[2025-04-06] MEDS: DOXYCYCLINE 100MG/100ML 100 ML IV SCH (18:15)
[2025-04-06] MEDS: VANCOMYCIN 1.25GM/250ML IV SCH (20:07)
[2025-04-06 20:55] LABS: LYMPHOCYTES % MANUAL 7.0 % (20.0-60.0); MONOCYTES % MANUAL 11.0 % (2.0-8.0); NEUTROPHILS % MANUAL 82.0 % (45.0-75.0)
[2025-04-06 20:56] LABS: PLATELET ESTIMATE DECREASED
[2025-04-06] MEDS: INSULIN GLARGINE 100 UNITS/ML SUBCUT SCH (22:00)
[2025-04-07] VITALS (101 sets, daily range): BP systolic 37–145; BP diastolic 14–104; PULSE 0–134; RESP 0–45; TEMP 36.4–37.2; O2SAT 0–100
[2025-04-07 06:02] LABS: HEMATOCRIT. 32.7 % (36.0-48.0); MEAN PLATELET VOLUME 8.9 fl (7.4-10.4); PLATELET 53 x1000/uL (130-400); RED BLOOD CELL COUNT 3.82 mill/uL (4.2-5.4); RED CELL DISTRIBUTION WIDTH 19.4 % (11.6-14.6)
[2025-04-07 06:41] LABS: UREA NITROGEN BLOOD 74.0 mg/dL (9-23)
[2025-04-07] MEDS ORDERED: AMIODARONE 360MG/200ML 200 ML IV SCH (06:45)
[2025-04-07 06:47] LABS: CREATININE 2.0 mg/dL (0.6-1.0); HEMOGLOBIN. 10.5 g/dL (12.0-16.0)
[2025-04-07] MEDS: AMIODARONE HCL 900 MG in DEXT 5% WATER 500 ML IV SCH (07:58)
[2025-04-07] MEDS: ALBUMIN HUMAN 25GM/100ML (25%) IV SCH (10:27)
[2025-04-07 11:32] LABS: BG BASE EXCESS -5.6 mmol/L (-2.0-3.0); BG CARBOXYHEMOGLOBIN 0.7 % (0.5-1.5); BG DEOXYHEMOGLOBIN 6.2 % (0.0-5.0); BG FRACTION INSPIRED OXYGEN 65; BG HCO3 ACT 19.6 mmol/L (21.0-28.0); BG METHEMOGLOBIN 0.3 % (0.5-1.5); BG OXYGEN SATURATION 93.7 % (94.0-98.0); BG OXYHEMOGLOBIN 92.8 % (94.0-98.0); BG PCO2 37.4 mmHg (32.0-45.0); BG PEEP (cmH2O) 8.0 cmH2O; BG PH 7.338 (7.350-7.450); BG PO2 72.0 mmHg (83.0-108.0); BG SAMPLE SITE ALINE; BG TIDAL VOLUME(mL) 450.0 mL; BG TOTAL HEMOGLOBIN 10.4 g/dL (12.0-16.0); BG VENT MODE VENT - PRVC; BG VENT RATE 14.0 set
[2025-04-07 13:48] LABS: BAND% 5.0 % (1.0-6.0); EOSINOPHILS % MANUAL 2.0 % (0.0-5.0); LYMPHOCYTES % MANUAL 8.0 % (20.0-60.0); MONOCYTES % MANUAL 11.0 % (2.0-8.0); NEUTROPHILS % MANUAL 74.0 % (45.0-75.0); PLATELET ESTIMATE MARKEDLY DECREASED
[2025-04-07] MEDS ORDERED: EPINEPHRINE 10 MG in SODIUM CHLORIDE 0.9% 240 ML IV PRN (18:45)
[2025-04-07] MEDS ORDERED: MORPHINE SULFATE/PF 1 MG/ML 100 MG in BAG 1 EACH IV PRN (20:15)
[2025-04-07] MEDS ORDERED: VANCOMYCIN 750MG/150ML (BAXTER) IV SCH (21:00)
[2025-04-07] MEDS: LORAZEPAM 2MG/ML UD SYRINGE IV SCH (21:06)
[2025-04-07] MEDS: MORPHINE (DRIP)100 MG in DEXT 5% WATER 100 ML IV PRN (21:08)
== END 2025-04-08 02:00 | DRG 870 ==
LOC: EDSEX 13:56 → ER 13:56 → EDBEDREQSVC 16:14 → EDBEDREQ 18:01 → EDBEDREQTM 18:01 → MICUSO 20:50
PROVIDERS: ADMIT Internal Medicine; ATTEND Internal Medicine
PROC: 02HV33Z Insertion of Infusion Device into Superior Vena Cava, Percutaneous Approach (ICD-10-PCS; 2025-03-24)
PROC: B548ZZA Ultrasonography of Superior Vena Cava, Guidance (ICD-10-PCS; 2025-03-24)
PROC: 30233N1 Transfusion of Nonautologous Red Blood Cells into Peripheral Vein, Percutaneous Approach (ICD-10-PCS; 2025-03-24)
PROC: 5A1955Z Respiratory Ventilation, Greater than 96 Consecutive Hours (ICD-10-PCS; principal; 2025-03-26)
PROC: 0BH17EZ Insertion of Endotracheal Airway into Trachea, Via Natural or Artificial Opening (ICD-10-PCS; 2025-03-26)
PROC: 02HV33Z Insertion of Infusion Device into Superior Vena Cava, Percutaneous Approach (ICD-10-PCS; 2025-03-30)
PROC: B548ZZA Ultrasonography of Superior Vena Cava, Guidance (ICD-10-PCS; 2025-03-30)
PROC: 03HY32Z Insertion of Monitoring Device into Upper Artery, Percutaneous Approach (ICD-10-PCS; 2025-04-07)
DX: A41.51 Sepsis due to Escherichia coli [E. coli] (principal); D65 Disseminated intravascular coagulation [defibrination syndrome]; L89.154 Pressure ulcer of sacral region, stage 4; G93.41 Metabolic encephalopathy; N17.0 Acute kidney failure with tubular necrosis; R65.21 Severe sepsis with septic shock; I21.4 Non-ST elevation (NSTEMI) myocardial infarction; K65.9 Peritonitis, unspecified; R57.1 Hypovolemic shock; J96.01 Acute respiratory failure with hypoxia; E43 Unspecified severe protein-calorie malnutrition; J69.0 Pneumonitis due to inhalation of food and vomit; N39.0 Urinary tract infection, site not specified; I46.9 Cardiac arrest, cause unspecified; I50.22 Chronic systolic (congestive) heart failure; K26.9 Duodenal ulcer, unspecified as acute or chronic, without hemorrhage or perforation; N18.9 Chronic kidney disease, unspecified; E11.22 Type 2 diabetes mellitus with diabetic chronic kidney disease; D50.9 Iron deficiency anemia, unspecified; I12.9 Hypertensive chronic kidney disease with stage 1 through stage 4 chronic kidney disease, or unspecified chronic kidney disease; E87.20 Acidosis, unspecified; D62 Acute posthemorrhagic anemia; E87.1 Hypo-osmolality and hyponatremia; I82.622 Acute embolism and thrombosis of deep veins of left upper extremity; Z16.12 Extended spectrum beta lactamase (ESBL) resistance; Z66 Do not resuscitate; E87.5 Hyperkalemia; E11.65 Type 2 diabetes mellitus with hyperglycemia; M81.0 Age-related osteoporosis without current pathological fracture; E83.51 Hypocalcemia; L89.622 Pressure ulcer of left heel, stage 2; L89.612 Pressure ulcer of right heel, stage 2; N28.1 Cyst of kidney, acquired; Z74.01 Bed confinement status; B02.9 Zoster without complications; D63.1 Anemia in chronic kidney disease; E83.39 Other disorders of phosphorus metabolism; E87.6 Hypokalemia; K59.00 Constipation, unspecified; M19.90 Unspecified osteoarthritis, unspecified site; Z68.25 Body mass index [BMI] 25.0-25.9, adult; Z78.1 Physical restraint status; Z78.9 Other specified health status; Z90.49 Acquired absence of other specified parts of digestive tract
CPT/HCPCS: 31500; 31720; 36415; 36556; 36573; 36600; 71045; 74018; 74176; 80048; 80053; 80061; 80076; 80202; 81003; 82040; 82310; 82330; 82375; 82533; 82550; 82607; 82728; 82746; 82805; 82962; 83036; 83540; 83550; 83605; 83735; 83880; 84100; 84145; 84439; 84443; 84450; 84460; 84478; 84481; 84484; 85014; 85018; 85025; 85362; 85379; 85384; 86022; 86850; 86900; 86920; 87070; 87077; 87186; 93005; 93306; 93970; 94002; 94003; 94070; 94640; 94664; 98960; 99291; A4606; A4615; C1725; J0133; J0282; J0612; J1650; J1720; J1815; J1938; J2003; J2060; J2185; J2270; J2371; J2405; J2470; J2543; J2704; J3373; J3475; J3480; J3490; J7030; J7050; J7060; J7120; J7121; P9016; P9047; Q9963